=== PATIENT | male | born 1995 | race Caucasian/White ===

== ENCOUNTER 2020-12-12 17:46 | Emergency (ER) | payer OTHER ==
[~2020-12-12] VITALS: Ht 172.7 cm; Wt 88.9 kg
[2020-12-12 18:04] VITALS: Ht 172.7 cm; Wt 88.9 kg
[2020-12-12 20:15] VITALS: BP 142/86
== END 2020-12-12 20:15 | disposition home or self-care (01) ==
LOC: ED 17:46
DX: R07.89 Other chest pain (principal)